=== PATIENT | male | born 1995 ===

== ENCOUNTER 2018-09-13 19:52 | Emergency (ER) | payer BC ==
--- NOTE | 2018-09-13 19:53 | UC ---
Lower Extremity/Ankle HPI - HPI Summary HPI Summary: 23 yo male presents with LEFT ankle pain. He tells me that he was playing soccer around 1630 today and ran into another player - somehow injured his left ankle, thinks he may have inverted it. Since that time has had mild pain on the outside of his ankle during ambulation. Pain is better with rest. Has not taken anything OTC for his discomfort. He is ambulatory without assistance. Denies numbness or tingling. - History of Current Complaint Stated Complaint: L ANKLE INJURY Time Seen by Provider: 09/13/18 19:53 Hx Obtained From: Patient Onset/Duration: Sudden Onset Severity Initially: Mild Severity Currently: Mild Pain Intensity: 3 Pain Scale Used: 0-10 Numeric - Allergies/Home Medications Allergies/Adverse Reactions: Allergies Allergy/AdvReac Type Severity Reaction Status Date / Time Sulfa (Sulfonamide Allergy Unknown Unknown Verified 09/13/18 20:00 Antibiotics) Reaction Details Home Medications: Home Medications LoraTADine TAB(NF) [Claritin 10 MG TAB(NF)] 10 mg PO DAILY 09/13/18 [History Confirmed 09/13/18] PMH/Surg Hx/FS Hx/Imm Hx - Additional Past Medical History Additional PMH: Seasonal allergies - Surgical History Surgical History: None - Family History Known Family History: Positive: None - Social History Occupation: Employed Full-time Lives: With Family Alcohol Use: Occasionally Substance Use Type: None Smoking Status (MU): Never Smoked Tobacco Review of Systems All Other Systems Reviewed And Are Negative: Yes Constitutional: Positive: Negative Skin: Positive: Negative Respiratory: Positive: Negative Cardiovascular: Positive: Negative Neurovascular: Positive: Negative Musculoskeletal: Positive: Other: - Left ankle pain Neurological: Positive: Negative Psychological: Positive: Negative Physical Exam - Summary Physical Exam Summary: GENERAL: NAD. WDWN. No pain distress. SKIN: No rashes, sores, lesions, or open wounds. CHEST: No accessory muscle use. Breathing comfortably and in no distress. CV: Pulses intact PT and DP. Cap refill <2seconds MSK: LEFT ANKLE: Mild TTP at superior lateral malleolus. FROM. Strength 5/5. No edema or obvious bony deformities. Negative talar tilt. No increased laxity. No 5th MT pain. NEURO: Alert. Sensations intact and symmetric B/L LEs PSYCH: Age appropriate behavior. Triage Information Reviewed: Yes Vital Signs: Vital Signs: Temp Pulse Resp BP Pulse Ox 98.5 F 91 16 136/76 98 09/13/18 19:57 09/13/18 19:57 09/13/18 19:57 09/13/18 19:57 09/13/18 19:57 Vital Signs Reviewed: Yes Lower Extremity Course/Dx - Course Course Of Treatment: XR: No radiologist reading after 1800, therefore wet read by myself is negative for fracture. Discussed with patient. Offered MARY wrap, crutches, gel splint, and/or cam boot - pt elected to have an mary wrap. Advised to RICE and f/u if symptoms do not improve within 4-5 days. - Differential Dx/Diagnosis Provider Diagnosis: Ankle sprain Discharge - Sign-Out/Discharge Documenting (check all that apply): Patient Departure All imaging exams completed and their final reports reviewed: No - Discharge Plan Condition: Stable Disposition: HOME Patient Education Materials: Ankle Sprain (ED) Referrals: No Primary Care Phys,NOPCP [Primary Care Provider] - Additional Instructions: If you develop a fever, shortness of breath, chest pain, new or worsening symptoms - please call your PCP or go to the ED immediately. 1) Rest, Ice, and elevate your ankle intermittently throughout the day 2) Use the MARY wrap as needed for comfort 3) If your symptoms do not improve within 4-5 days, please be rechecked - Billing Disposition and Condition Condition: STABLE Disposition: Home
[2018-09-13 20:00] VITALS: BP 136/76
--- NOTE | 2018-09-14 16:34 | UC ---
- Progress Note Progress Note: Patient Name: CHIKA RODRIGUEZ Medical Record#: [id number] Ordering Physician: Celestino COSME Acct.#: [id number] : 1995 Age: 23 Sex: M Location: [facility] Exam Date: 09/13/182008 ADM Status: DEP ER Order Information: ANKLE LEFT 3+VWS Accession Number: [id number] CPT: 35266 INDICATION: Left ankle injury. TECHNIQUE: 3 views of the left ankle were obtained. FINDINGS: Soft tissue swelling is noted along the anterolateral aspect of the ankle. No fracture is seen. Joint spaces appear maintained. IMPRESSION: SOFT TISSUE SWELLING, NO FRACTURE IS SEEN. R0 Preliminary Imaging Read R0 <Electronically signed by Dontrell Ibarra MD in OV> 09/14/18713 Dictated By: Dontrell Ibarra MD Dictated Date/Time: 09/14/18713 Transcribed Date/Time: 09/14/18712 Copy to: CC:No Primary Care Phys,NOPCP ; Celestino COSME; Warren Howard MD Imaging - [facility] Imaging - [facility] Imaging - [facility] [address] [address] ph ([phone]) ph ([phone]) ph ([phone]) This report is only to be considered final once signed by the Provider(s) as displayed in the "<Electronically Signed by >" field (s). Absence of a signature indicates the report is in a draft status and still needs to be finalized. In the event this document was created by someone other than the signing Provider, the individual initiating the document will be listed in the "Entered by:" or "Dictated by:" carnes. 1 of 1 Course/Dx - Diagnoses Provider Diagnoses: Ankle sprain Discharge - Sign-Out/Discharge Documenting (check all that apply): Post-Discharge Follow Up All imaging exams completed and their final reports reviewed: No - Discharge Plan Condition: Stable Disposition: HOME Patient Education Materials: Ankle Sprain (ED) Referrals: No Primary Care Phys,NOPCP [Primary Care Provider] - Additional Instructions: If you develop a fever, shortness of breath, chest pain, new or worsening symptoms - please call your PCP or go to the ED immediately. 1) Rest, Ice, and elevate your ankle intermittently throughout the day 2) Use the MARY wrap as needed for comfort 3) If your symptoms do not improve within 4-5 days, please be rechecked - Billing Disposition and Condition Condition: STABLE Disposition: Home
== END 2018-09-13 20:37 | disposition home or self-care (01) ==
LOC: UCEAST 19:52
DX: S93.402A Sprain of unspecified ligament of left ankle, initial encounter (principal); W51.XXXA Accidental striking against or bumped into by another person, initial encounter; Y93.66 Activity, soccer; Y92.9 Unspecified place or not applicable
CPT/HCPCS: 99202; G0463